=== PATIENT | male | born 1975 | race Two or more races ===

== ENCOUNTER 2020-08-25 14:40 | Emergency (ER) | payer SELFPAY ==
[~2020-08-25] VITALS: Ht 182.9 cm; Wt 113.4 kg
[2020-08-25 14:42] VITALS: BP 142/88
[2020-08-25] MEDS ORDERED: KETOROLAC TROMETH 60MG/2ML VIAL IM ONE (15:30)
== END 2020-08-25 16:44 | disposition home or self-care (01) ==
LOC: ER 14:40
DX: S29.012A Strain of muscle and tendon of back wall of thorax, initial encounter (principal); S50.11XA Contusion of right forearm, initial encounter; V49.9XXA Car occupant (driver) (passenger) injured in unspecified traffic accident, initial encounter; Y93.89 Activity, other specified; Y92.89 Other specified places as the place of occurrence of the external cause; Y99.8 Other external cause status
CPT/HCPCS: 72070; 96372; 99283; J1885

== ENCOUNTER 2021-09-15 09:48 | Emergency (ER) | payer MEDICAID, OTHER ==
[~2021-09-15] VITALS: Ht 182.9 cm; Wt 108.9 kg
[2021-09-15 10:04] VITALS: BP 144/83
[2021-09-15] MEDS ORDERED: CEPH-509 PO (14:20)
[2021-09-15] MEDS ORDERED: IBU600T PO (14:20)
== END 2021-09-15 14:40 | disposition home or self-care (01) ==
LOC: ER 09:48
DX: N45.1 Epididymitis (principal); N43.3 Hydrocele, unspecified
CPT/HCPCS: 76870